=== PATIENT | female | born 1995 ===

== ENCOUNTER 2016-11-13 09:12 | Inpatient (IN) | payer OTHER ==
[2016-11-20] MEDS ORDERED: OXYTOCIN 10 UNITS/ML VIAL ONE (19:08)
[2016-11-20] MEDS ORDERED: OXYTOCIN IN LR 500 ML IV ONE ×2 (19:08→21:12)
[2016-11-20] MEDS ORDERED: MINERAL OIL 25 ML BOT ONE (19:08)
[2016-11-20] MEDS ORDERED: PUMP TUBING ONE (19:08)
[2016-11-20] MEDS ORDERED: SODIUM CHLORIDE 0.9% FLUSH 10 ML ONE (19:08)
[2016-11-20] MEDS ORDERED: IV START KIT ONE (19:08)
[2016-11-20] MEDS ORDERED: LIDOCAINE 1% (PRES FREE) 30 ML VIAL ONE (19:08)
[2016-11-20] MEDS ORDERED: LIDOCAINE Viscous 2% 15 ML UDCUP ONE (19:08)
[2016-11-20] MEDS ORDERED: DINOPROSTONE 10 MG SUP VG ONE (21:10)
[2016-11-20] MEDS ORDERED: PENICILLIN G POTASSIUM 5 MMU in NS 0.9% (MINI-BAG PLUS) 100 ML IV ONE (21:30)
[2016-11-20 21:37] LABS: HEMATOCRIT 35.9 % (37.0-47.0); MEAN CELL VOLUME 85.1 fl (81.0-99.0); MEAN CORPUSCULAR HEMOGLOBIN 28.4 pg (27.0-31.0); MEAN CORPUSCULAR HGB CONC 33.4 g/dl (33.0-37.0); RED CELL DISTRIBUTION WIDTH 14.3 % (11.5-14.5)
--- NOTE | 2016-11-20 22:01 | PCMAN ---
OB Admission Note - History : 1 Term: 0 : 0 Abortions (S&E): 0 Livin EDC:: 11/13/16 Gestational Age (weeks): 41 Days (#/7): 0 Admit Cervical Dilation:: 1 Admit Cervical Effacement (%):: 25 Admit Station:: -3 Admit Presentaton:: cephalic Membrane Status: Intact Contractions: Yes Contraction Frequency:: 10-11 Heart Rate:: 130 Status:: cat 1 EFW:: 3.5 kg Summary of Course:: Uncomplicated. Past edc only. O/w 30# weight gain, normal labs except for GBS+ . - Labs Blood Type: B (+) positive Rubella Status: Immune GBS Status: Positive Abnormal Labs: None - Review of Systems No VITALE, RUQ pain, vis changes or new swelling. No f/c/n/v. No flu like illness. Mild dry cough. - Physical Exam General: Afebrile, No Acute Distress Psych/Mental Status: Mood/Affect Appropriate Lungs: Clear to Auscultation Bilaterally Cardiovascular: Regular Rate and Rhythm, No Murmur Abdomen: Normal Bowel Sounds Genitourinary: Normal Female Genitalia Extremities: No Edema Skin: Warm, Dry, No Rash - Problems (1) 41 weeks gestation of Status: Acute Code: Z3A.41Assessment/Plan: Discussed at length, reason for IOL and questions answered. Given unfavorable cervix, will start cervidil and try to get some sleep in the night. Reviewed PARQ's of IOL. Pt. and understand. (2) Primigravida Status: Acute Code: Z34.00Assessment/Plan: Doing well. IOL for post dates. GBS+, will tx when active. Discussed some pain control options. They did not attend classes. She wants to breastfeed and baby will go to [facility] for pediatric care. (3) Positive GBS test Status: Acute Code: B95.1Assessment/Plan: Start penicillin when active.
[2016-11-20] MEDS: ZOLPIDEM TARTRATE 5 MG TABLET PO PRN (23:29)
[2016-11-21 01:28] VITALS: BMI 36.3
[2016-11-21] MEDS ORDERED: PENICILLIN G 3 MIL UNIT PREMIX 3 MMU in Premix (D5W) 50 ml 1 EACH IV SCH (01:30)
--- NOTE | 2016-11-21 12:44 | PDOC36 ---
Provider Note Subject: MD Interval Note Note: Patient had cervidil overnight, removed at 0900 due to tachysystole. Patient reports feeling contractions, but still mild. SVE /-2, per RN more anterior than before. Molly too often to place another cervidil. Discussed possible waddell balloon. Patient's plan is for epidural when she is in painful active labor. FHT: Category 1, 120, moderate, accels present, no decels TOCO: Q2-3 minutes A/P: 21 yo at 41 1/7 wks, IOL for post dates, GBS positive - s/p cervidil x 1' - will allow patient to walk to see if ctx space out or get stronger - consider another cervidil vs waddell balloon - start PCN once labor is active
--- NOTE | 2016-11-21 15:18 | PDOC36 ---
Provider Note Subject: MD Interval Note Note: Patient walked around for 2.5 hrs. SVE unchanged, /-2. Still carlos enrique too much for another cervidil, so decision made to place Cook catheter. 40 mL placed in each balloon. Patient then reported that ctx became stronger. FHT: 130, moderate, accels present, no decels, Category 1 TOCO: Q4-5 mins A/P: 21 yo at 41 1/7 wks, GBS pos, IOL for post dates - Cook balloon placed for cervical ripening, may stay in up to 12 hours, NST reactive after placement
[2016-11-21] MEDS ORDERED: FENTANYL 100 MCG/2 ML VIAL IV PRN (19:34)
[2016-11-21] MEDS: ZOLPIDEM TARTRATE 5 MG TABLET PO PRN (20:44)
[2016-11-22] MEDS ORDERED: OXYTOCIN IN LR 500 ML IV PRN (03:02)
--- NOTE | 2016-11-22 03:02 | PDOC36 ---
Provider Note Subject: MD Interval Note Note: Waddell balloon removed. SVE 350/-3, bloody show. Patient received Fentanyl 50mcg IV x 2. She reports contractions are still painful, Q4 mins. FHT: 150, modearate variability, accels present, no decels TOCO: Q4 minutes, difficult to trace at times A/P: 21 yo at 41 2/7 wks, IOL for postdates, GBS pos - patient still having contractions - waddell removed, has had modest cervical change - will allow her to rest for now, start pitocin after breakfast around 8 am.
[2016-11-22] MEDS ORDERED: PUMP TUBING ONE (08:00)
[2016-11-22] MEDS: LACTATED RINGERS 1,000 ML IV SCH ×2 (09:10→19:06)
[2016-11-22] MEDS ORDERED: IV START KIT ONE (09:15)
--- NOTE | 2016-11-22 09:36 | PDOC36 ---
Provider Note Subject: MD Interval Note Note: Patient rested overnight, took shower and ate breakfast this am. Ctx have now spaced out to every 10 minutes, not very painful. Pitocin started at 0910, currently at 1. FHT: 125, moderate variability, accels present, no decels, Category 1 TOCO: Q 10 mins A/P: 21 yo at 41 2/7 wks, IOL for post dates, GBS pos - now on pitocin - will start PCN for GBS once ctx are more painful
[2016-11-22] MEDS ORDERED: NS 0.9% (MINI-BAG PLUS) 100 ML IV ONE (13:17)
[2016-11-22] MEDS ORDERED: PENICILLIN G POTASSIUM 5 MMU VIAL ONE (13:17)
--- NOTE | 2016-11-22 13:19 | PDOC36 ---
Provider Note Subject: MD Interval Note Note: Patient rating contractions as mild, SVE essentially unchanged, but more effaced , 3/60/-2. Pit at 8. Contraction pattern regular. FHT: 140, moderate variability, accels present, no decels TOCO: Q 2.5 mins A/P: 21 yo at 41 2/7 wks, GBS pos, IOL for post dates - will start PCN - plan for AROM once IAP is adequate
[2016-11-22] MEDS ORDERED: PENICILLIN G POTASSIUM 5 MMU in NS 0.9% (MINI-BAG PLUS) 100 ML IV ONE (13:30)
[2016-11-22] MEDS: PENICILLIN G 3 MIL UNIT PREMIX 3 MMU in Premix (D5W) 50 ml 1 EACH IV SCH ×2 (17:20→21:30)
--- NOTE | 2016-11-22 18:01 | PDOC36 ---
Provider Note Subject: MD Interval Note Note: Patient allowed to eat dinner, pit turned off x 1 hour. Not feeling contractions anymore. Q4 mins on toco. SVE 3.5/70/-2, AROM - very scant amount of clear fluid. Received PCN x 2 doses. FHT: 125, moderate variability, accels present, no decels TOCO: Q 4 mins A/P: 21 yo at 41 2/7 wks, GBS pos, adequate IAP, IOL for post dates - s/p AROM - will restart pit and titrate - expectant management.
[2016-11-22] MEDS ORDERED: PENICILLIN G 3 MIL UNIT PREMIX 50 ML IV ONE (21:00)
[2016-11-23] MEDS ORDERED: FENTANYL/ROPIVACAINE EPIDURAL 250 ML EP ONE (00:12)
[2016-11-23] MEDS ORDERED: EPIDURAL PUMP SET ONE ×2 (00:12→17:33)
[2016-11-23] MEDS: FENTANYL/ROPIVACAINE EPIDURAL 250 ML EP SCH ×2 (00:30→17:38)
[2016-11-23] MEDS ORDERED: EPIDURAL PROCEDURE TRAY ONE (01:07)
[2016-11-23] MEDS ORDERED: ROPIVACAINE 0.5% 30 ML VIAL ONE (01:07)
[2016-11-23] MEDS ORDERED: PENICILLIN G 3 MIL UNIT PREMIX 50 ML IV ONE ×5 (01:26→17:10)
[2016-11-23] MEDS ORDERED: NALOXONE HCL 0.4 MG/ML VIAL IV PRN ×2 (02:19→23:30)
[2016-11-23] MEDS ORDERED: ONDANSETRON 4 MG/2ML 2 ML VIAL IV PRN ×3 (02:19→23:30)
[2016-11-23] MEDS ORDERED: METOCLOPRAMIDE HCL 5 MG/ML 2ML VIAL IV PRN (02:19)
[2016-11-23] MEDS ORDERED: NALBUPHINE HCL 20 MG/ML AMP IV PRN ×2 (02:19→23:30)
[2016-11-23] MEDS ORDERED: DIPHENHYDRAMINE HCL 50 MG/1 ML VIAL IV PRN ×3 (02:19→23:30)
[2016-11-23] MEDS ORDERED: SODIUM CHLORIDE 0.9% 500 ML IV PRN (02:19)
[2016-11-23] MEDS ORDERED: EPHEDRINE SULFATE 50 MG/ML 1ML VIAL IV PRN ×2 (02:19→23:30)
[2016-11-23] MEDS ORDERED: LACTATED RINGERS 500 ML IV PRN (02:19)
[2016-11-23] MEDS: PENICILLIN G 3 MIL UNIT PREMIX 3 MMU in Premix (D5W) 50 ml 1 EACH IV SCH ×5 (05:30→17:20)
[2016-11-23] MEDS: LACTATED RINGERS 1,000 ML IV SCH ×8 (05:50→18:49)
--- NOTE | 2016-11-23 09:25 | PDOC36 ---
Provider Note Subject: Taking over care for Dr. Wagner. Pt is a 21 yo who was admitted at 41 wks for IOL for postdates c/p Cervidil x 1, Whitaker balloon, Pitocin and AROM at 17:39 yesterday 11/22/16. GBS positive and on q 4hr prophylaxis. S: Pt feeling fine and comfortable with epidural. O: BP 105/61, HR 88, T 101.0 SVE: 6cm/90%/-2 Manley: q 2-3 min FHTs: 150 baseline, moderate variability, +accels, -decels, Cat. I Pitocin: 6 units now A/P: 21 yo @ 41 3/7wks with reassuring FHTs, Cat. I, now making progress but with chorioamnionitis. -will give Gent now for chorio, pt already on PCN -will recheck in 2hrs and if no further progress, will place [facility] then
[2016-11-23] MEDS ORDERED: IV START KIT ONE (09:28)
[2016-11-23] MEDS: GENTAMICIN SULFATE 140 MG in SODIUM CHLORIDE 0.9% 100 ML IV SCH ×2 (09:58→18:01)
[2016-11-23] MEDS: SODIUM CHLORIDE 0.65% NASAL SPRAY 45 ML BOT NS PRN ×2 (11:52→14:59)
[2016-11-23] MEDS ORDERED: PUMP TUBING ONE (16:11)
[2016-11-23] MEDS ORDERED: ACETAMINOPHEN 500 MG TABLET PO ONE (18:45)
[2016-11-23] MEDS ORDERED: CEFAZOLIN SODIUM 2 GRAM DUPLEX 2 G in Premix (D5W) 50 ml 1 EACH IV PRN (21:18)
[2016-11-23] MEDS ORDERED: BUPIVACAINE 0.75% SPINAL AMPUL 2 ML ONE (21:29)
[2016-11-23] MEDS ORDERED: MORPHINE SULFATE (DURAMORPH) 1 MG/ML 10ML AMP ONE (21:29)
[2016-11-23] MEDS ORDERED: SPINAL PROCEDURAL TRAY 1 EACH ONE (21:29)
[2016-11-23] MEDS ORDERED: LACTATED RINGERS 1,000 ML IV SCH (21:30)
[2016-11-23] MEDS ORDERED: CEFAZOLIN SODIUM 1,000 MG VIAL ONE (21:50)
[2016-11-23] MEDS ORDERED: CLINDAMYCIN 900 MG PREMIX 50 ML IV ONE (21:54)
[2016-11-23] MEDS ORDERED: OXYTOCIN 10 UNITS/ML VIAL ONE ×3 (22:17→22:31)
[2016-11-23] MEDS ORDERED: ONDANSETRON 4 MG/2ML 2 ML VIAL ONE (22:25)
[2016-11-23] MEDS ORDERED: PHENYLEPHRINE 10 MG/1 ML (1%) VIAL ONE (22:34)
[2016-11-23] MEDS ORDERED: KETOROLAC TROMETHAMINE 30 MG/ML 1 ML VIAL ONE (22:45)
[2016-11-23] MEDS ORDERED: PROMETHAZINE HCL 25 MG/ML VIAL IM PRN ×2 (23:13→23:30)
[2016-11-23] MEDS ORDERED: LANOLIN 50 APPLIC/7G TUBE TP PRN (23:13)
[2016-11-23] MEDS ORDERED: DIPHENHYDRAMINE HCL 25 MG CAPSULE PO PRN (23:13)
--- NOTE | 2016-11-23 23:28 | PDOC36 ---
Provider Note Subject: 21 yo @ 41 3/7 wks, s/p IOL for postdates, with chorioamnionitis on antibiotics, at 10cm/100%/+2 has been pushing for 3 1/2 hrs with no descent. Pt was with epidural, FSE and on 13 units of Pitocin. FHT tracing was reassuring with baseline of 150, moderate variability, accels and no decels. A vacuum delivery was attempted but after just 2 pop-offs this was aborted as there was no further descent noted even with vacuum-suction. Discussion was held regarding a Primary Cesarian Section and the risks and benefits were discussed including infection, bleeding, injury to organs and baby and the patient and the father of the baby and maternal mother decided to proceed.
[2016-11-23] MEDS ORDERED: HYDROMORPHONE HCL 2 MG/ML SYRINGE IV PRN (23:30)
[2016-11-23] MEDS ORDERED: HYDROMORPHONE HCL 1 MG/ML SYRINGE IV PRN (23:30)
--- NOTE | 2016-11-23 23:33 | PDOC37 ---
Procedure: Primary Section Date of Procedure: 11/23/16 Start Time: 22:05 Preoperative Diagnosis: 1. 41 3/7 week intrauterine . 2. Failure to descend 3. Postdates 4. Chorioamnionitis Postoperative Diagnosis: Same plus 5. Occiput Posterior Position Surgeon: Sharla Pastor MD Assist: Sindhu Wagner MD Indication for Procedure: 21 year old, at 41 weeks 3 days with failure to descend. Maximum dilation 10cm at 2+ station. Anesthesia: Spinal with Duramorph Complications: None Estimated Blood Loss: 600 mLs IV Fluids: 1600 mLs of LR Medications: 600 gm of Clindamycin for routine prophylaxis. 30 units of Pitocin. Urine Output: 60 mLs of slightly blood-tinged urine Findings: girl in straight occiput posterior position with weight of 3825g. Apgars 9 and 9. Delivered at 22:10. Fluid clear. Normal uterus, ovaries , and tubes. Procedure: The patient was taken to the operating room where the epidural anesthesia was not found to be adequate and a spinal anesthesia was placed. She was then prepared and draped in the normal sterile fashion in the dorsal supine position with a leftward tilt. A timeout was performed. A Pfannensteil skin incision was then made with the scalpel and carried through to the underlying layer of fascia with the scalpel. The fascia was incised in the midline and the incision extended laterally with the Rosales scissors. The superior aspect of the fascial incision was then grasped with the Frida clamps, elevated, and the underlying rectus muscles dissected off bluntly and sharply where needed. Attention was then turned to the inferior aspect of the incision which, in a similar fashion, was grasped, tented up with the Frida clamps, and the rectus muscle dissected off bluntly and sharply with Rosales scissors. The rectus muscles were then in the midline, and the peritoneum was identified and entered bluntly. The peritoneal incision was then extended with good visualization of the bladder. The bladder blade was then inserted and the lower uterine segment incised in a transverse fashion with the scalpel. The uterine incision was then extended laterally by pulling superolaterally on both sides. Fluid was noted to be clear. The bladder blade was removed the infant's head was flexed out of a direct occiput posterior position deep down in the pelvis and lifted toward the incision and delivered atraumatically. The nose and mouth were suctioned with bulb suction and the cord was clamped and cut after 1 minute. The infant was handed off to the waiting staff attorney. The placenta was then delivered with gentle cord traction. The uterus was then exteriorized and cleared of all clots and debris. The uterine incision was repaired with 0 vicryl in a running, locked fashion. A few figures of eight were placed to control some bleeding. A second layer of the same suture was used in an imbricating fashion to obtain excellent hemostasis. The gutters were cleared of all clots. The uterus was returned to the abdomen. A final look at the hysterotomy confirmed excellent hemostasis. The fascia was reapproximated with 0 Vicryl in a running fashion. The skin was closed using a Gabo needle. The patient tolerated the procedure well. Sponge, lap and needle counts were correct times three. A debriefing was held at the end of the procedure with anesthesia and nursing staff. The patient was taken to the recovery room in stable condition.
[2016-11-24] MEDS ORDERED: LACTATED RINGERS 0 ML ONE (00:20)
[2016-11-24] MEDS ORDERED: AMPICILLIN SODIUM 2 G VIAL ONE ×4 (00:20→18:15)
[2016-11-24] MEDS ORDERED: NS 0.9% (MINI-BAG PLUS) 100 ML IV ONE ×4 (00:20→18:16)
[2016-11-24] MEDS: AMPICILLIN SODIUM 2 G in NS 0.9% (MINI-BAG PLUS) 100 ML IV SCH ×4 (00:28→18:21)
[2016-11-24] MEDS ORDERED: PUMP TUBING ONE (01:57)
[2016-11-24] MEDS ORDERED: GENTAMICIN 80MG/100ML PREMIX 100 ML ONE (01:57)
[2016-11-24] MEDS ORDERED: NS IV SCH (02:00)
[2016-11-24] MEDS ORDERED: GENTAMICIN IV SCH (02:00)
[2016-11-24] MEDS: KETOROLAC TROMETHAMINE 30 MG/ML 1 ML VIAL IV PRN ×3 (04:58→17:10)
[2016-11-24] MEDS: CLINDAMYCIN 600 MG PREMIX 600 MG in Premix (D5W) 50 ml 1 EACH IV SCH ×3 (06:09→22:15)
[2016-11-24 06:44] LABS: HEMATOCRIT 26.9 % (37.0-47.0); HEMOGLOBIN 8.9 gm/l (12.0-16.0); MEAN CELL VOLUME 85.9 fl (81.0-99.0); MEAN CORPUSCULAR HEMOGLOBIN 28.4 pg (27.0-31.0); MEAN CORPUSCULAR HGB CONC 33.1 g/dl (33.0-37.0); RED CELL DISTRIBUTION WIDTH 14.5 % (11.5-14.5)
[2016-11-24] MEDS: PRENATAL VIT/FE FUMARATE/FA 1 TABLET PO SCH (11:01)
[2016-11-24] MEDS: DOCUSATE SODIUM 100 MG CAPSULE PO SCH ×2 (11:01→22:17)
--- NOTE | 2016-11-24 11:20 | PDOC44 ---
- Subjective Reports Pain Tolerable - Objective Temp Pulse Resp BP Pulse Ox 98.1 F 76 16 100/57 96 11/24/16 06:12 11/24/16 06:12 11/24/16 06:12 11/24/16 06:12 11/24/16 00:30 Lab Results 11/24/16 06:10 WBC 20.7 H RBC 3.13 L Hgb 8.9 L Hct 26.9 L Plt Count 168 Current Medications Generic Name Dose Route Start Last Admin Trade Name Freq PRN Reason Stop Dose Admin Diphenhydramine HCl 25 - 50 mg 11/23/16 23:13 Benadryl PO Q6H PRN Itching (Mild/Moderate) Diphenhydramine HCl 25 - 50 mg 11/23/16 23:13 Benadryl IV Q6H PRN Itching (Severe) Diphenhydramine HCl 25 - 50 mg 11/23/16 23:30 Benadryl IV 11/24/16 21:00 Q4H PRN Itching Docusate Sodium 100 mg 11/24/16 09:00 Colace PO BID MANISHA Emollient Ointment 1 applic 11/23/16 23:13 Yya-A-Juqeyj TP PRN PRN sore nipples Ephedrine Sulfate 5 - 10 mg 11/23/16 23:30 Ephedrine Sulfate IV 11/24/16 21:00 Q5M PRN Hydromorphone HCl 0.5 - 2 mg 11/23/16 23:30 Dilaudid IV 11/24/16 21:00 Q1H PRN Pain (Breakthrough) Hydromorphone HCl 0.5 - 2 mg 11/23/16 23:30 Dilaudid IV 11/24/16 21:00 Q1H PRN Pain Clindamycin HCl/Dextrose 600 50 mls @ 150 mls/hr 11/24/16 06:00 11/24/16 06:09 mg/ Premix (D5W) 50 ml IV 11/24/16 22:19 150 mls/hr Q8H MANISHA Administration Ampicillin Sodium 2 g/ NS 0.9% 100 mls @ 300 mls/hr 11/23/16 23:30 11/24/16 06: 33 (MINI-BAG PLUS) IV 11/24/16 23:29 300 mls/hr Q6H MANISHA Administration Ibuprofen 800 mg 11/23/16 23:13 Motrin PO Q6H PRN Pain Ketorolac Tromethamine 30 mg 11/23/16 23:13 11/24/16 04:58 Toradol IV 30 mg Q6H PRN Administration Pain (Mild/Moderate) Multivi/Iron Carb/Fe Sulf/FA/Prenat 1 tab 11/24/16 09:00 Plus PO DAILY MANISHA Nalbuphine HCl 1 - 5 mg 11/23/16 23:30 Nubain IV 11/24/16 21:00 Q4H PRN Itching Naloxone HCl 0.2 - 0.4 mg 11/23/16 23:30 Narcan IV 11/24/16 21:00 Q5M PRN Ondansetron HCl 4 mg 11/23/16 23:13 11/24/16 06:08 Zofran IV 4 mg Q6H PRN Administration Nausea/Vomiting Ondansetron HCl 4 mg 11/23/16 23:30 Zofran IV 11/24/16 21:00 Q6H PRN Nausea/Vomiting Oxycodone/Acetaminophen 1 - 2 tab 11/23/16 23:13 Percocet 5/325 PO Q4H PRN Pain (Moderate) Promethazine HCl 25 mg 11/23/16 23:13 Phenergan IM Q6H PRN Nausea/Vomiting Promethazine HCl 6.25 mg 11/23/16 23:30 Phenergan IM 11/24/16 21:00 Q4H PRN Nausea/Vomiting Sodium Chloride 10 ml 11/21/16 01:00 11/24/16 08:41 Normal Saline 10ml Flush IV 10 ml Q8HR MANISHA Administration Sodium Chloride 10 ml 11/23/16 23:13 Normal Saline 10ml Flush IV PRN PRN IV Flush - Physical Exam General: Afebrile Psych/Mental Status: Bonding Well Neurological: Oriented x 4 Lungs: Clear to Auscultation Bilaterally Cardiovascular: Regular Rate and Rhythm Fundus: Firm, Below Umbilicus Wound OIL CHANGER: Well Approximated - Problems:Assessment/Plan (1) Chorioamnionitis Status: AcuteAssessment/Plan: Afebrile continue to monitor for fever (2) Delivery by section of full-term infant Status: AcuteAssessment/Plan: Recovering well Stable exam Out of bed today Continue routine care (3) Acute post-hemorrhagic anemia Status: AcuteAssessment/Plan: Start ferrous sulfate
[2016-11-24] MEDS ORDERED: LACTATED RINGERS 1,000 ML ONE (12:20)
[2016-11-24] MEDS: LACTATED RINGERS 1,000 ML IV SCH ×2 (12:31→18:13)
[2016-11-24] MEDS: FERROUS SULFATE (65 Fe) 325 MG TABLET PO SCH (22:17)
[2016-11-25] MEDS: KETOROLAC TROMETHAMINE 30 MG/ML 1 ML VIAL IV PRN ×3 (03:22→18:15)
[2016-11-25] MEDS ORDERED: IRON SUCROSE COMPLEX 200 MG in SODIUM CHLORIDE 0.9% 100 ML IV ONE (12:49)
--- NOTE | 2016-11-25 12:49 | PDOC44 ---
- Subjective Day: 2 (POD#2 s/p LTCS) Doing well. Ambulating. Pain controlled. Waddell out today, has not tried to void yet. No dizziness. No n/v. Reports Flatus, Reports Pain Tolerable, Reports , Reports Tolerating Regular Diet, Denies Nausea, Denies Vomiting - Objective Temp Pulse Resp BP Pulse Ox 97.8 F 71 18 99/58 95 11/25/16 07:14 11/25/16 07:14 11/25/16 07:14 11/25/16 07:14 11/25/16 02:48 Vital Signs - 24 hr 11/24/16 11/24/16 11/25/16 16:00 21:51 02:48 Temperature 98.0 F 97.3 F 100.0 F Pulse Rate 94 90 93 Respiratory 16 16 16 Rate Blood Pressure 104/56 101/56 112/66 O2 Saturation 95 by Pulse Oximetry 11/25/16 07:14 Temperature 97.8 F Pulse Rate 71 Respiratory 18 Rate Blood Pressure 99/58 O2 Saturation by Pulse Oximetry Current Medications Generic Name Dose Route Start Last Admin Trade Name Freq PRN Reason Stop Dose Admin Diphenhydramine HCl 25 - 50 mg 11/23/16 23:13 Benadryl PO Q6H PRN Itching (Mild/Moderate) Diphenhydramine HCl 25 - 50 mg 11/23/16 23:13 Benadryl IV Q6H PRN Itching (Severe) Docusate Sodium 100 mg 11/24/16 09:00 11/24/16 22:17 Colace PO 100 mg BID MANISHA Administration Emollient Ointment 1 applic 11/23/16 23:13 [id number] TP PRN PRN sore nipples Ferrous Sulfate 325 mg 11/24/16 21:00 11/24/16 22:17 Ferrous Sulfate PO 325 mg BID MANISHA Administration Lactated Ringer's 1,000 mls @ 25 mls/hr 11/24/16 13:00 11/24/16 18:13 Lactated Ringers IV Not Given .Q24H MANISHA Ibuprofen 800 mg 11/23/16 23:13 Motrin PO Q6H PRN Pain Ketorolac Tromethamine 30 mg 11/23/16 23:13 11/25/16 11:41 Toradol IV 30 mg Q6H PRN Administration Pain (Mild/Moderate) Multivi/Iron Carb/Fe Sulf/FA/Prenat 1 tab 11/24/16 09:00 11/24/16 11:01 Plus PO Not Given DAILY MANISHA Ondansetron HCl 4 mg 11/23/16 23:13 11/24/16 06:08 Zofran IV 4 mg Q6H PRN Administration Nausea/Vomiting Oxycodone/Acetaminophen 1 - 2 tab 11/23/16 23:13 Percocet 5/325 PO Q4H PRN Pain (Moderate) Promethazine HCl 25 mg 11/23/16 23:13 Phenergan IM Q6H PRN Nausea/Vomiting Sodium Chloride 10 ml 11/21/16 01:00 11/25/16 04:27 Normal Saline 10ml Flush IV Not Given Q8HR MANISHA Sodium Chloride 10 ml 11/23/16 23:13 11/25/16 11:41 Normal Saline 10ml Flush IV 10 ml PRN PRN Administration IV Flush - Physical Exam General: Afebrile, No Acute Distress Psych/Mental Status: Mood/Affect Appropriate, Judgment/Insight Intact, Bonding Well Neurological: Grossly Intact, Alert, Normal Speech HEENT: Atraumatic, Mucous membr. moist/pink Lungs: Clear to Auscultation Bilaterally Cardiovascular: Regular Rate and Rhythm Breast: Soft Fundus: Firm (nontender), Midline, Below Umbilicus Abdomen: Normal Bowel Sounds Extremities: Edema (2+ bilateral pedal edema) Skin: Normal Color, Warm, Dry, Intact, No Rash Wound LAST PATTERN GRADER: Dressing in Place, Dressing Clean/Dry/Intact - Problems:Assessment/Plan (1) Acute post-hemorrhagic anemia Status: AcuteAssessment/Plan: Start ferrous sulfate Will give one dose of IV iron Encourage Fe rich diet (2) Chorioamnionitis Status: AcuteAssessment/Plan: Afebrile continue to monitor for fever (3) Delivery by section of full-term Status: AcuteAssessment/Plan: Recovering well POD#2 s/p primary LTCS for failure to descend and vacuum pop-ff x 2, after IOL x 3 days for postdates (cervidil, waddell bulb, pitocin and AROM) and developed chorioamnionitis. was direct OP. Encourage ambulation Continue routine care post csxn care Support BF Anticip DC home in AM (4) Positive GBS test Status: AcuteAssessment/Plan: Adequate GBS IAP Disposition: Stable, Anticipate DC Home Tomorrow
[2016-11-25] MEDS ORDERED: PUMP TUBING ONE (13:43)
[2016-11-25] MEDS: PRENATAL VIT/FE FUMARATE/FA 1 TABLET PO SCH (17:05)
[2016-11-25] MEDS: FERROUS SULFATE (65 Fe) 325 MG TABLET PO SCH ×2 (17:05→21:56)
[2016-11-25] MEDS: OXYCODONE/ACETAMINOPHEN 5/325 MG TABLET PO PRN (17:15)
[2016-11-25] MEDS: DOCUSATE SODIUM 100 MG CAPSULE PO SCH ×2 (17:15→21:56)
[2016-11-25] MEDS: LACTATED RINGERS 1,000 ML IV SCH (18:21)
[2016-11-26] MEDS: IBUPROFEN 800 MG TABLET PO PRN ×2 (00:38→06:24)
--- NOTE | 2016-11-26 07:40 | PDOC39B ---
Hospital Course: ADMIT DATE: 11/20/16 DISCHARGE DATE: 11/26/16 ADMISSION DIAGNOSES: Induction of labor, 41 weeks PROCEDURES: Induction, failed vacuum, Primary LTCS HISTORY OF PRESENT ILLNESS: 21 year old G1 T0 L0 at 41 weeks 3 days presenting for induction of labor. HOSPITAL COURSE: The patient was admitted underwent induction of labor with waddell catheter, cervidil, went on to complete, failed vacuum, and proceeded with Primary LTCS, she also developed chorioamnionitis. By day of discharge the patient is ambulating, eating, voiding, and passing flatus without difficulty. Pain is controlled and lochia is appropriate. She is [ and supplementing. - Physical Exam Vital Signs: Temp Pulse Resp BP Pulse Ox 97.8 F 76 16 106/52 95 11/26/16 02:45 11/26/16 02:45 11/26/16 02:45 11/26/16 02:45 11/25/16 02:48 General: Afebrile Psych/Mental Status: Mood/Affect Appropriate, Bonding Well Neurological: Alert HEENT: Atraumatic Lungs: Clear to Auscultation Bilaterally Cardiovascular: Regular Rate and Rhythm Breast: Soft Fundus: Firm, At Umbilicus Abdomen: Normal Bowel Sounds Genitourinary: Normal Female Genitalia Lochia: Light Rectal Exam: Deferred Extremities: Other (nt, no edema) - Discharge Diagnosis (1) Delivery by section of full-term Status: AcuteAssessment/Plan: Recovering well POD#3 s/p primary LTCS for failure to descend and vacuum pop-ff x 2, after IOL x 3 days for postdates (cervidil, waddell bulb, pitocin and AROM) and developed chorioamnionitis. Infant was direct OP. Continue routine care post csxn care breast and supplementing, discharge home (2) Acute post-hemorrhagic anemia Status: AcuteAssessment/Plan: Start ferrous sulfate given one dose of IV iron Encourage Fe rich diet (3) Chorioamnionitis Status: AcuteAssessment/Plan: Afebrile continue to monitor for fever (4) Positive GBS test Status: AcuteAssessment/Plan: Adequate GBS IAP - Discharge Plan Condition: Good Disposition: Home Prescriptions: Docusate Sodium [COLACE 100 MG CAPSULE (SHF)] 100 mg PO DAILY PRN #30 cap PRN Reason: Constipation Ibuprofen [Motrin] 800 mg PO Q8H PRN #30 tablet PRN Reason: Pain FERROUS SULFATE (65 Fe) [IRON FERROUS SULFATE 325 MG TABLET (SHF)] 325 mg PO BID #60 tab Oxycodone HCl/Acetaminophen [PERCOCET 5/325 MG TABLET (SHF)] 1 tab PO Q4H PRN # 40 tab PRN Reason: Pain Follow-Up: Moe Tavarez Jr, MD [Staff Physician] - In 2 weeks
[2016-11-26 08:08] VITALS: BP 107/54
[2016-11-26] MEDS: DOCUSATE SODIUM 100 MG CAPSULE PO SCH (08:16)
[2016-11-26] MEDS: PRENATAL VIT/FE FUMARATE/FA 1 TABLET PO SCH (08:16)
[2016-11-26] MEDS: OXYCODONE/ACETAMINOPHEN 5/325 MG TABLET PO PRN (08:16)
[2016-11-26] MEDS: FERROUS SULFATE (65 Fe) 325 MG TABLET PO SCH (08:16)
== END 2016-11-26 13:30 | disposition home or self-care (01) | DRG 765 ==
LOC: EDSTATUS 10:47 → FBC 11-20 18:58
PROVIDERS: ADMIT Family Medicine; ATTEND Family Medicine
PROC: 3E0P7GC Introduction of Other Therapeutic Substance into Female Reproductive, Via Natural or Artificial Opening (ICD-10-PCS; 2016-11-20)
PROC: 0U7C7ZZ Dilation of Cervix, Via Natural or Artificial Opening (ICD-10-PCS; 2016-11-20)
PROC: 10907ZC Drainage of Amniotic Fluid, Therapeutic from Products of Conception, Via Natural or Artificial Opening (ICD-10-PCS; 2016-11-22)
PROC: 10D00Z1 Extraction of Products of Conception, Low, Open Approach (ICD-10-PCS; principal; 2016-11-23)
DX: O48.0 Post-term pregnancy (principal); O41.1230 Chorioamnionitis, third trimester, not applicable or unspecified; O99.824 Streptococcus B carrier state complicating childbirth; O66.5 Attempted application of vacuum extractor and forceps; O32.4XX0 Maternal care for high head at term, not applicable or unspecified; O99.02 Anemia complicating childbirth; D62 Acute posthemorrhagic anemia; Z3A.41 41 weeks gestation of pregnancy; Z37.0 Single live birth